=== PATIENT | female | born 2000 | race Caucasian/White ===

== ENCOUNTER 2020-10-15 13:40 | Observation (INO) ==
[2020-10-15 13:50] VITALS: BMI 19.5
--- NOTE | 2020-10-15 14:17 | ED.ABDFE ---
HPI Time Seen Time Seen by Provider: 10/15/20 14:16 PCP Primary Care Physician: DR ROSALES HPI Comment HPI Comment: Patient presents with the complaint of persistent abdominal pain and nausea/vomiting. Seen in ED a few days ago for similar complaint. Patient had hypokalemia that was corrected during that visit. Had workup which included labs, CT abd/pelvis and RUQ US. Scheduled to have cholestectomy on 10/[address] Ortiz. Complaint Chief Complaint:: PT C/O PROGRESSIVELY WORSENING PAIN INTO RUQ ASSOCIATED WITH NAUSEA AND VOMITING. Self Treatment fo Chief Complaint: PT WAS SCHEDULED FOR CHOLECYSTECTOMY ON 10/25 COVID-19 Coronavirus risk:travel/contact w/high risk person: No Has patient experienced Coronavirus symptoms: No Source History Provided: Patient Mode of arrival Mode of Arrival: Ambulatory Timing Onset of Chief Complaint: 10/15/20 PMH PMH Past Medical History: Yes Past Medical History: Anxiety Past Surgical History: Yes Surgical History: Ortho Surgery Family History History of Family Medical Conditions: No Family Medical History: Diabetes Mellitus, Cancer, Coronary Artery Disease and Hypertension Social History Does patient currently use any type of tobacco product: No Have you used tobacco products in the last 12 months: No Type of Tobacco Use: None Does any household member use tobacco: No Alcohol Use: None Do you use any recreational Drugs:: Yes Lives With: Spouse Lives Where: Home Travel Risk Coronavirus risk:travel/contact w/high risk person: No Has patient experienced Coronavirus symptoms: No Infectious screening In the last 2 months have you had wt loss of >10#?: NO Have you had fever, night sweats or hemotysis?: No Have you traveled outside the country in the last 6 months?: No Isolation: Standard ROS Review of Systems Constitutional: See HPI PE Vital Signs Vitals: Temperature 98.1 F Pulse Rate 83 Respiratory Rate 20 Blood Pressure 130/74 O2 Sat by Pulse Oximetry 98 General Limitations: No Limitations General Appearance: Alert and In No Apparent Distress Head Head Exam: Normal Inspection, Atraumatic and Normocephalic Eyes Eye exam: Normal Appearance and EOMI ENT ENT Exam: Normal Exam and Normal Oropharynx Neck Neck Exam: Normal Inspection and Trachea Midline Chest Chest Inspection: Normal Inspection and Symmetric Chest Wall Rise Respiratory Respiratory Exam: Normal Lung Sounds Bilat Respiratory Exam: Bilateral: Clear to Auscultation Cardiovascular Cardiovascular Exam: Regular Rate, Normal Rhythm and Normal Heart Sounds Abdominal Exam Abdominal Exam: Normal Inspection and Tenderness Abdominal Tenderness: Diffuse Neurologic Neurological Exam: Alert and Oriented X3 Psychiatric Psychiatric Exam: Normal Affect and Normal Mood Skin Skin Exam: Warm and Dry COURSE Consultation Consultation Comments: Spoke with Dr. Ortiz who accepts patient for admission Opioid Opioid Risk Tool Age (Nikhil box if 16-45): Yes History of Preadolescent Sexual Abuse: No Total: 1 Total Score Risk Category: Low Risk Copyright: Logan MCMILLAN predicting aberrant behaviors Diagnosis Discharge Problem: Intractable nausea and vomiting Abdominal pain Qualifiers: Abdominal location: right upper quadrant Qualified Code(s): R10.11 - Right upper quadrant pain
[2020-10-15] MEDS ORDERED: MORPHINE SULFATE INJ 4 MG IVP PRN ×2 (14:18→17:06)
[2020-10-15] MEDS ORDERED: ZOFRAN INJ 4 MG VIAL IVP PRN (14:18)
[2020-10-15] MEDS ORDERED: MORPHINE SULFATE INJ 4 MG ONE ×2 (14:29→16:27)
[2020-10-15] MEDS ORDERED: NS 1000 ML 1,000 ML ONE (14:29)
[2020-10-15] MEDS ORDERED: ZOFRAN INJ 4 MG VIAL ONE (14:29)
[2020-10-15 14:33] LABS: BASOPHILS % (AUTO) 0.2 % (0.2-1.0); EOSINOPHILS # (AUTO) 0.1 x10^3/uL (0.0-0.2); HEMATOCRIT 43.9 % (36.0-47.0); HEMOGLOBIN 15.1 g/dL (12.0-16.0); LYMPHOCYTES # (AUTO) 1.4 X10^3/uL (1.3-2.9); LYMPHOCYTES % (AUTO) 15.8 % (21.0-51.0); MEAN CORPUSCULAR HEMOGLOBIN 32.2 pg (27.0-34.0); MEAN CORPUSCULAR HGB CONC 34.4 g/dL (33.0-35.0); MEAN CORPUSCULAR VOLUME 93.4 fL (80.0-100.0); MEAN PLATELET VOLUME 8.1 fL (7.4-11.0); MONOCYTES # (AUTO) 0.7 x10^3/uL (0.3-0.8); MONOCYTES % (AUTO) 8.4 % (0.0-13.0); NEUTROPHILS # (AUTO) 6.5 x10^3/uL (2.2-4.8); NEUTROPHILS % (AUTO) 74.6 % (42.0-75.0); PLATELET COUNT 307 X10^3/uL (150.0-450.0); RED BLOOD COUNT 4.69 X10^6/uL (3.5-5.4); RED CELL DISTRIBUTION WIDTH 12.8 % (11.6-16.5); WHITE BLOOD COUNT 8.7 X10^3/uL (3.6-10.0)
[2020-10-15 14:43] LABS: ALANINE AMINOTRANSFERASE 25 Units/L (12-78); ALBUMIN 4.7 g/dL (3.4-5.0); ALKALINE PHOSPHATASE 62 Units/L (46-116); ASPARTATE AMINO TRANSFERASE 16 Units/L (15-37); BLOOD UREA NITROGEN 5 mg/dL (7-18); CALCIUM 10.1 mg/dL (8.5-10.1); CARBON DIOXIDE 27.3 mmol/L (21-32); CHLORIDE 105 mmol/L (98-107); CREATININE 0.81 mg/dL (0.55-1.02); SODIUM 144 mmol/L (136-145); TOTAL PROTEIN 8.3 g/dL (6.4-8.2); eGFR NON BLACK RACES > 60 (>60)
[2020-10-15] MEDS ORDERED: NS 1000 ML 1,000 ML IV SCH (15:00)
[2020-10-15] MEDS ORDERED: KLOR-CON PO PRN (15:21)
[2020-10-15] MEDS ORDERED: POTASSIUM CHL 60 MEQ/NS 0.45% 500 ML IV PRN (15:21)
[2020-10-15] MEDS ORDERED: MAGNESIUM SULFATE 1 GRAM/100 mL PREMIX 1 GM/100 ML BAG IV PRN (15:21)
[2020-10-15] MEDS ORDERED: POTASSIUM CHLORIDE LIQ 20 MEQ UDC PO PRN (15:21)
[2020-10-15] MEDS ORDERED: MICRO K EXTEN CAP 10 MEQ PO PRN (15:21)
[2020-10-15] MEDS ORDERED: POTASSIUM CHL 40 MEQ/NS 0.45% 500 ML IV PRN (15:21)
[2020-10-15] MEDS ORDERED: PROTONIX INJ 40 MG VIAL IVP SCH (16:00)
[2020-10-15] MEDS ORDERED: D5 1/2 NS 1000 ML 1,000 ML IV ONE (16:23)
[2020-10-15] MEDS: D5 1/2 NS 1000 ML 1,000 ML IV SCH (17:00)
[2020-10-15] MEDS: K-DUR TAB 20 MEQ PO PRN (17:39)
[2020-10-15] MEDS: K-RIDER 10 MEQ/NS 100 ML 10 MEQ/100 ML BAG IV PRN ×3 (18:04→20:19)
[2020-10-15] MEDS: ATIVAN INJ 2 MG VIAL IVP SCH ×2 (18:05→23:00)
[2020-10-15] MEDS: MVI INJ (ADULT) IV SCH (18:05)
[2020-10-15 22:00] LABS: BILIRUBIN,URINE NEGATIVE (NEGATIVE); BLOOD/HEMOGLOBIN,URINE NEGATIVE (NEGATIVE); GLUCOSE, URINE NEGATIVE (NEGATIVE); KETONES,URINE 1+ (NEGATIVE); LEUKOCYTE ESTERASE ,URINE NEGATIVE (NEGATIVE); NITRITES,URINE NEGATIVE (NEGATIVE); PROTEIN,URINE NEGATIVE (NEGATIVE); UROBILINOGEN,URINE NORMAL (NORMAL)
[2020-10-15 22:07] LABS: APPEARANCE,URINE CLEAR (CLEAR); COLOR,URINE STRAW (YELLOW)
[2020-10-16] MEDS: D5 1/2 NS 1000 ML 1,000 ML IV SCH ×4 (01:39→17:08)
[2020-10-16] MEDS: ATIVAN INJ 2 MG VIAL IVP SCH ×4 (05:48→22:57)
[2020-10-16 06:20] LABS: BASOPHILS % (AUTO) 0.3 % (0.2-1.0); EOSINOPHILS # (AUTO) 0.1 x10^3/uL (0.0-0.2); EOSINOPHILS % (AUTO) 1.4 % (0.9-2.9); HEMATOCRIT 35.5 % (36.0-47.0); HEMOGLOBIN 12.3 g/dL (12.0-16.0); LYMPHOCYTES % (AUTO) 34.1 % (21.0-51.0); MEAN CORPUSCULAR HEMOGLOBIN 32.5 pg (27.0-34.0); MEAN CORPUSCULAR HGB CONC 34.7 g/dL (33.0-35.0); MEAN CORPUSCULAR VOLUME 93.5 fL (80.0-100.0); MEAN PLATELET VOLUME 8.4 fL (7.4-11.0); MONOCYTES # (AUTO) 0.8 x10^3/uL (0.3-0.8); MONOCYTES % (AUTO) 12.7 % (0.0-13.0); NEUTROPHILS # (AUTO) 3.1 x10^3/uL (2.2-4.8); NEUTROPHILS % (AUTO) 51.5 % (42.0-75.0); PLATELET COUNT 231 X10^3/uL (150.0-450.0); RED CELL DISTRIBUTION WIDTH 12.8 % (11.6-16.5)
[2020-10-16 06:24] LABS: ALANINE AMINOTRANSFERASE 21 Units/L (12-78); ALBUMIN 3.1 g/dL (3.4-5.0); ALKALINE PHOSPHATASE 42 Units/L (46-116); ASPARTATE AMINO TRANSFERASE 12 Units/L (15-37); BLOOD UREA NITROGEN 3 mg/dL (7-18); CALCIUM 8.6 mg/dL (8.5-10.1); CHLORIDE 108 mmol/L (98-107); COR CA(FOR HYPOALB) 9.3 mg/dL (8.5-10.1); CREATININE 0.57 mg/dL (0.55-1.02); MAGNESIUM 1.9 mg/dL (1.7-2.9); SODIUM 143 mmol/L (136-145); TOTAL PROTEIN 5.8 g/dL (6.4-8.2); eGFR NON BLACK RACES > 60 (>60)
--- NOTE | 2020-10-16 08:14 | DR.H&P ---
H&P - History & Physical for Day of: H&P Date: 10/15/20 - Chief Complaint Chief Complaint: ABDOMINAL PAIN, NAUSEA, VOMITING - History of Present Illness History of Present Illness: IS A 20 YEAR OLD WHITE FEMALE WHO PRESENTED TO THE ER WITH COMPLAINTS OF PERSISTENT NAUSEA, VOMITING, AND ABDOMINAL PAIN. SYMPTOMS STARTED ABOUT A WEEK AGO. SHE REPORTS THAT SHE HAS HAD EPISODES SIMILAR TO THIS IN THE PAST. SHE RECENTLY HAD AN ENDOSCOPY, BUT BIOPSIES ARE PENDING. SHE HAS ALSO HAD HIDA SCANS IN THE PAST, BUT DOES NOT REMEMBER HER EJECTION FRACTION. ABDOMINAL PAIN IS DESCRIBED STABBING AND WAS RATED A 7/10 ON ARRIVAL. IT IS LOCATED IN THE RUQ. SHE REPORTS THAT SYMPTOMS ARE WORSE AFTER EATING. SHE WAS IN THE ER FOR THE SAME SYMPTOMS ON 10/12/20 AND HAD AN ABDOMEN/PELVIS CT WITHOUT CONTRAST. IT REVEALED: Hyperdense material in the gallbladder may represent sludge, cholelithiasis, or most likely vicarious excretion of contrast. No surrounding inflammation. Please see right upper quadrant sonogram for further evaluation. A GALLBLADDER ULTRASOUND WAS THEN OBTAINED, WHICH REVEALED: 4.4 cm echogenic lesion in the left hepatic lobe is probably a benign hemangioma. Confirmation with dynamic contrast enhanced MRI of the liver is recommended. Sludge and a tiny polyp are seen in the gallbladder. HER POTASSIUM WAS LOW AT THAT TIME. IT WAS REPLEATED AND SHE WAS DISCHARGED HOME TO FOLLOW UP WITH . SHE IS SCHEDULED FOR OUTPATIENT CHOLECYSTECTOMY ON 10/25/2020. ON ARRIVAL TO THE HOSPITAL TODAY, HER VITALS WERE 98.1-83-20-98%-130/74. LABS WERE OBTAINED. ABNORMAL LAB VALUES INCLUDE THE FOLLOWING: POTASSIUM 2.9, BUN 5, TOTAL PROTEIN 8.3. URINALYSIS WAS UNREMARKABLE. IN THE ER, SHE WAS GIVEN MORPHINE 4MG IV X 1, AND ZOFRAN 4MG IV X 1 DOSE. SHE REPORTED ONLY SLIGHT IMPROVEMENT IN SYMPTOMS. SHE WAS ADMITTED TO THE HOSPITAL FOR FURTHER EVAULATION AND TREATMENT OF INTRACTABLE NAUSEA AND VOMITING, ABDOMINAL PAIN, AND DEHYDRATION. , GENERAL SURGEON WILL SEE PATIENT TODAY. SHE WAS STARTED ON D51/2 NS AT 125ML/HR, LORAZEPAM 1MG IV Q8H CORA, MORPHINE 4MG IV Q4H PRN PAIN, ZOFRAN 4MG IV Q4H PRN, PEPCID 20MG IV BID, PROTONIX 40MG IV BID, GI COCKTAIL 15ML PO QID, AND THE POTASSIUM AND MAGNESIUM PROTOCOLS. OTHERWISE, WE PLAN TO FOLLOW UP WITH AM LABS AND CONTINUE TO MONITOR. TIME SPENT ON CLINICAL ASSESSMENT, REVIEWING LABS AND IMAGING, DECISION MAKING, AND DOCUMENTATION GREATER THAN 75 MINUTES. - Past Medical History Past Medical History: Anxiety - Past Surgical History Surgical History: Ortho Surgery - Family History Family Medical History: CA, Hypertension - Social History Does patient currently use any type of tobacco product: No Have you used tobacco products in the last 12 months: No Type of Tobacco Use: None Does any household member use tobacco: Yes Alcohol Use: None Drug Use: Marijuana - Medications Home Medications: amoxicillin Allergy (Verified 10/12/20 10:31) - Review of Systems Constitutional: See HPI, Weakness Eyes: No Symptoms Reported ENT: No Symptoms Reported Respiratory: No Symptoms Reported Cardiovascular: No Symptoms Reported Gastrointestinal: See HPI, Nausea, Vomiting, Abdominal Pain. denies: Diarrhea, Constipation, Melena, Hematochezia Genitourinary: No Symptoms Reported Musculoskeletal: No Symptoms Reported Skin: No Symptoms Reported Neurological: Weakness - Physical Exam Vital Signs: Temperature 99.0 F Pulse Rate [Bilateral Radial] 63 Pulse Rate 83 Respiratory Rate 20 Blood Pressure [Left Arm] 101/58 Blood Pressure 130/74 O2 Sat by Pulse Oximetry 99 Oriented: Normal Eyes: Normal Ear: Normal Nose: Normal Throat: Normal Respiratory: Clear Throughout Cardiovascular: Normal : Normal Auscultation: Bowel Sounds: Normal Palpation: Normal Tenderness: RUQ, Moderate. negative: Rebound, Guarding, Rigidity Skin: Normal Musculoskeletal: Normal Psychiatric: Normal Mood Description: Calm Affect: Normal Speech Pattern: Clear - Assessment/Plan (1) Dehydration Status: Acute Plan: ADMIT, D51/2 NS AT 125ML/HR, LORAZEPAM 1MG IV Q8H CORA, MORPHINE 4MG IV Q4H PRN PAIN, ZOFRAN 4MG IV Q4H PRN, PEPCID 20MG IV BID, PROTONIX 40MG IV BID, GI COCKTAIL 15ML PO QID, AND THE POTASSIUM AND MAGNESIUM PROTOCOLS. (2) Intractable nausea and vomiting Status: Acute (3) Abdominal pain Qualifiers: Abdominal location: right upper quadrant Qualified Code(s): R10.11 - Right upper quadrant pain Status: Acute (4) Acute hypokalemia Status: Acute - Allergies Allergies/Adverse Reactions: Allergies Allergy/AdvReac Type Severity Reaction Status Date / Time amoxicillin Allergy Verified 10/12/20 10:31
[2020-10-16] MEDS: K-RIDER 10 MEQ/NS 100 ML 10 MEQ/100 ML BAG IV PRN ×3 (09:12→12:55)
[2020-10-16] MEDS: PROTONIX INJ 40 MG VIAL IVP SCH ×2 (09:13→20:52)
[2020-10-16] MEDS ORDERED: ZOFRAN INJ 4 MG VIAL IVP PRN (09:16)
[2020-10-16] MEDS: MVI INJ (ADULT) IV SCH (10:24)
[2020-10-16] MEDS: PEPCID 20 MG IV PREMIX* 20 MG/50 ML BAG IV SCH ×2 (10:39→20:53)
[2020-10-16] MEDS: LEVSIN/MAALOX/LIDOC VISC PO SCH ×4 (10:40→20:53)
--- NOTE | 2020-10-16 13:00 | DR.PROGNOT ---
Hospital Progress Notes - Progress Note for Day of: Progress Note Date: 10/16/20 - Chief Complaint Chief Complaint: feeling much better today .. no nausea or vomiting . less abdominal pain . had very loose BM . K was 2.9 which was corrected to 3.3 . WWBC 6. tmp 99 - Past Medical Family Social History Past Med/Fam/Surg Hx: No changes since H&P Allergies: Allergies amoxicillin Allergy (Verified 10/12/20 10:31) - Review Of Systems ROS: No change since H&P - Vital Signs Vital Signs: Temperature 99.0 F Pulse Rate [Bilateral Radial] 63 Pulse Rate 83 Respiratory Rate 18 Blood Pressure [Left Arm] 101/58 Blood Pressure 130/74 O2 Sat by Pulse Oximetry 99 - Physical Exam Oriented: Normal Eyes: Normal Ear: Normal Nose: Normal Throat: Normal Cardiovascular: Normal : Normal GI:Auscultation: Normal GI:Palpation: Normal GI: Tenderness: RUQ (soft abdomen with moderate RUQ tnderness , no rebound , no rigidity.), Moderate. negative: Rebound, Guarding, Rigidity Skin: Normal Musculoskeletal: Normal Psychiatric: Normal Mood Description: Calm Affect: Normal Speech Pattern: Clear - Laboratory and Diagnostics Result Diagrams: 10/16/20 05:30 10/16/20 05:30 Labs: Laboratory WBC 6.0 X10^3/uL (3.6-10.0) 10/16/20 05:30 RBC 3.80 X10^6/uL (3.5-5.4) 10/16/20 05:30 Hgb 12.3 g/dL (12.0-16.0) D 10/16/20 05:30 Hct 35.5 % (36.0-47.0) L 10/16/20 05:30 MCV 93.5 fL (80.0-100.0) 10/16/20 05:30 MCH 32.5 pg (27.0-34.0) 10/16/20 05:30 MCHC 34.7 g/dL (33.0-35.0) 10/16/20 05:30 RDW 12.8 % (11.6-16.5) 10/16/20 05:30 Plt Count 231 X10^3/uL (150.0-450.0) 10/16/20 05:30 MPV 8.4 fL (7.4-11.0) 10/16/20 05:30 Neut % (Auto) 51.5 % (42.0-75.0) 10/16/20 05:30 Lymph % (Auto) 34.1 % (21.0-51.0) 10/16/20 05:30 [place] % (Auto) 12.7 % (0.0-13.0) 10/16/20 05:30 Eos % (Auto) 1.4 % (0.9-2.9) 10/16/20 05:30 Baso % (Auto) 0.3 % (0.2-1.0) 10/16/20 05:30 Neut # (Auto) 3.1 x10^3/uL (2.2-4.8) 10/16/20 05:30 Lymph # (Auto) 2.0 X10^3/uL (1.3-2.9) 10/16/20 05:30 [place] # (Auto) 0.8 x10^3/uL (0.3-0.8) 10/16/20 05:30 Eos # (Auto) 0.1 x10^3/uL (0.0-0.2) 10/16/20 05:30 Baso # (Auto) 0.0 X10^3/uL (0.0-0.1) 10/16/20 05:30 Absolute Nucleated RBC 0.1 /100WBC 10/16/20 05:30 Sodium 143 mmol/L (136-145) 10/16/20 05:30 Corrected Sodium TNP 10/16/20 05:30 Potassium 3.3 mmol/L (3.5-5.1) L 10/16/20 05:30 Chloride 108 mmol/L (98-107) H 10/16/20 05:30 Carbon Dioxide 27.0 mmol/L (21-32) 10/16/20 05:30 BUN 3 mg/dL (7-18) L 10/16/20 05:30 Creatinine 0.57 mg/dL (0.55-1.02) 10/16/20 05:30 Est GFR (MDRD) Af Amer > 60 (>60) 10/16/20 05:30 Est GFR (MDRD) Non-Af > 60 (>60) 10/16/20 05:30 Glucose 95 mg/dL (65-99) 10/16/20 05:30 POC Glucose (mg/dL) 88 mg/dL (65-99) 10/16/20 05:38 Calcium 8.6 mg/dL (8.5-10.1) 10/16/20 05:30 Corrected Calcium 9.3 mg/dL (8.5-10.1) 10/16/20 05:30 Magnesium 1.9 mg/dL (1.7-2.9) 10/16/20 05:30 Total Bilirubin 0.50 mg/dL (0.2-1.0) 10/16/20 05:30 AST 12 Units/L (15-37) L 10/16/20 05:30 ALT 21 Units/L (12-78) 10/16/20 05:30 Alkaline Phosphatase 42 Units/L (46-116) L 10/16/20 05:30 Total Protein 5.8 g/dL (6.4-8.2) L 10/16/20 05:30 Albumin 3.1 g/dL (3.4-5.0) L 10/16/20 05:30 Globulin 2.7 g/dL (2.5-4.5) 10/16/20 05:30 Albumin/Globulin Ratio 1.1 Ratio (1.1-2.1) 10/16/20 05:30 Specimen Type Clean catch urine 10/15/20 21:35 Urine Color Straw (YELLOW) 10/15/20 21:35 Urine Appearance Clear (CLEAR) 10/15/20 21:35 Urine pH 8.0 (5.0 - 8.0) 10/15/20 21:35 Ur Specific [place] 1.015 (1.000-1.030) 10/15/20 21:35 Urine Protein Negative (NEGATIVE) 10/15/20 21:35 Urine Glucose (UA) Negative (NEGATIVE) 10/15/20 21:35 Urine Ketones 1+ (NEGATIVE) 10/15/20 21:35 Urine Occult Blood Negative (NEGATIVE) 10/15/20 21:35 Urine Nitrite Negative (NEGATIVE) 10/15/20 21:35 Urine Bilirubin Negative (NEGATIVE) 10/15/20 21:35 Urine Urobilinogen Normal (NORMAL) 10/15/20 21:35 Ur Leukocyte Esterase Negative (NEGATIVE) 10/15/20 21:35 - Assessment and Plan 1: acute abdominal pain with severe vomiting . recurrent cholecystitis . possible cyclic vomiting syndrome . electrolyte imbalance and dehydration . on IVF , Vitamine supplements , Protonix, Ativan . lap wilbert if still symptomatic .. - Problem Patient Problems: Patient Problems Abdominal pain (Acute) R10.9 Acute hypokalemia (Acute) E87.6 Intractable nausea and vomiting (Acute) R11.2 Dehydration (Acute) E86.0
[2020-10-17] MEDS: D5 1/2 NS 1000 ML 1,000 ML IV SCH ×3 (01:13→16:44)
[2020-10-17 04:42] LABS: BASOPHILS % (AUTO) 0.3 % (0.2-1.0); EOSINOPHILS # (AUTO) 0.1 x10^3/uL (0.0-0.2); EOSINOPHILS % (AUTO) 1.8 % (0.9-2.9); HEMATOCRIT 36.4 % (36.0-47.0); HEMOGLOBIN 12.2 g/dL (12.0-16.0); LYMPHOCYTES # (AUTO) 1.8 X10^3/uL (1.3-2.9); LYMPHOCYTES % (AUTO) 33.3 % (21.0-51.0); MEAN CORPUSCULAR HEMOGLOBIN 31.9 pg (27.0-34.0); MEAN CORPUSCULAR HGB CONC 33.5 g/dL (33.0-35.0); MEAN PLATELET VOLUME 8.7 fL (7.4-11.0); MONOCYTES # (AUTO) 0.7 x10^3/uL (0.3-0.8); MONOCYTES % (AUTO) 12.9 % (0.0-13.0); NEUTROPHILS # (AUTO) 2.8 x10^3/uL (2.2-4.8); NEUTROPHILS % (AUTO) 51.7 % (42.0-75.0); PLATELET COUNT 241 X10^3/uL (150.0-450.0); RED BLOOD COUNT 3.83 X10^6/uL (3.5-5.4); RED CELL DISTRIBUTION WIDTH 13.1 % (11.6-16.5); WHITE BLOOD COUNT 5.4 X10^3/uL (3.6-10.0)
[2020-10-17 04:51] LABS: ALANINE AMINOTRANSFERASE 19 Units/L (12-78); ALBUMIN 3.1 g/dL (3.4-5.0); ALKALINE PHOSPHATASE 40 Units/L (46-116); ASPARTATE AMINO TRANSFERASE 10 Units/L (15-37); BLOOD UREA NITROGEN 2 mg/dL (7-18); CALCIUM 8.1 mg/dL (8.5-10.1); CARBON DIOXIDE 25.6 mmol/L (21-32); CHLORIDE 109 mmol/L (98-107); COR CA(FOR HYPOALB) 8.8 mg/dL (8.5-10.1); CREATININE 0.51 mg/dL (0.55-1.02); MAGNESIUM 2.1 mg/dL (1.7-2.9); SODIUM 144 mmol/L (136-145); TOTAL PROTEIN 5.6 g/dL (6.4-8.2); eGFR NON BLACK RACES > 60 (>60)
[2020-10-17] MEDS: ATIVAN INJ 2 MG VIAL IVP SCH ×3 (05:59→21:27)
[2020-10-17] MEDS: MVI INJ (ADULT) IV SCH (08:30)
[2020-10-17] MEDS: LEVSIN/MAALOX/LIDOC VISC PO SCH ×4 (08:45→20:34)
[2020-10-17] MEDS: PEPCID 20 MG IV PREMIX* 20 MG/50 ML BAG IV SCH ×2 (08:46→20:32)
[2020-10-17] MEDS: PROTONIX INJ 40 MG VIAL IVP SCH ×2 (08:46→20:33)
--- NOTE | 2020-10-17 12:42 | DR.PROGNOT ---
Hospital Progress Notes - Progress Note for Day of: Progress Note Date: 10/17/20 - Chief Complaint Chief Complaint: feeling much better today .. no nausea or vomiting . less abdominal pain . tolerated soft diet without voiting . K is norml today. WBC 6. tmp 99 - Past Medical Family Social History Past Med/Fam/Surg Hx: No changes since H&P Allergies: Allergies amoxicillin Allergy (Verified 10/12/20 10:31) - Review Of Systems ROS: No change since H&P - Vital Signs Vital Signs: Temperature 97.6 F Pulse Rate [Bilateral Radial] 82 Pulse Rate 83 Respiratory Rate 18 Blood Pressure [Left Arm] 102/56 Blood Pressure 130/74 O2 Sat by Pulse Oximetry 98 - Physical Exam Oriented: Normal Eyes: Normal Ear: Normal Nose: Normal Throat: Normal Cardiovascular: Normal : Normal GI:Auscultation: Normal GI:Palpation: Normal GI: Tenderness: RUQ (soft abdomen with moderate RUQ tnderness , no rebound , no rigidity.), Moderate. negative: Rebound, Guarding, Rigidity Skin: Normal Musculoskeletal: Normal Psychiatric: Normal Mood Description: Calm Affect: Normal Speech Pattern: Clear, Appropriate - Laboratory and Diagnostics Result Diagrams: 10/17/20 04:00 10/17/20 04:00 Labs: Laboratory WBC 5.4 X10^3/uL (3.6-10.0) 10/17/20 04:00 RBC 3.83 X10^6/uL (3.5-5.4) 10/17/20 04:00 Hgb 12.2 g/dL (12.0-16.0) 10/17/20 04:00 Hct 36.4 % (36.0-47.0) 10/17/20 04:00 MCV 95.0 fL (80.0-100.0) 10/17/20 04:00 MCH 31.9 pg (27.0-34.0) 10/17/20 04:00 MCHC 33.5 g/dL (33.0-35.0) 10/17/20 04:00 RDW 13.1 % (11.6-16.5) 10/17/20 04:00 Plt Count 241 X10^3/uL (150.0-450.0) 10/17/20 04:00 MPV 8.7 fL (7.4-11.0) 10/17/20 04:00 Neut % (Auto) 51.7 % (42.0-75.0) 10/17/20 04:00 Lymph % (Auto) 33.3 % (21.0-51.0) 10/17/20 04:00 [place] % (Auto) 12.9 % (0.0-13.0) 10/17/20 04:00 Eos % (Auto) 1.8 % (0.9-2.9) 10/17/20 04:00 Baso % (Auto) 0.3 % (0.2-1.0) 10/17/20 04:00 Neut # (Auto) 2.8 x10^3/uL (2.2-4.8) 10/17/20 04:00 Lymph # (Auto) 1.8 X10^3/uL (1.3-2.9) 10/17/20 04:00 [place] # (Auto) 0.7 x10^3/uL (0.3-0.8) 10/17/20 04:00 Eos # (Auto) 0.1 x10^3/uL (0.0-0.2) 10/17/20 04:00 Baso # (Auto) 0.0 X10^3/uL (0.0-0.1) 10/17/20 04:00 Absolute Nucleated RBC 0.0 /100WBC 10/17/20 04:00 Sodium 144 mmol/L (136-145) 10/17/20 04:00 Corrected Sodium TNP 10/17/20 04:00 Potassium 3.8 mmol/L (3.5-5.1) 10/17/20 04:00 Chloride 109 mmol/L (98-107) H 10/17/20 04:00 Carbon Dioxide 25.6 mmol/L (21-32) 10/17/20 04:00 BUN 2 mg/dL (7-18) L 10/17/20 04:00 Creatinine 0.51 mg/dL (0.55-1.02) L 10/17/20 04:00 Est GFR (MDRD) Af Amer > 60 (>60) 10/17/20 04:00 Est GFR (MDRD) Non-Af > 60 (>60) 10/17/20 04:00 Glucose 92 mg/dL (65-99) 10/17/20 04:00 POC Glucose (mg/dL) 80 mg/dL (65-99) 10/17/20 11:08 Hemoglobin A1c 4.6 % 10/17/20 04:35 Calcium 8.1 mg/dL (8.5-10.1) L 10/17/20 04:00 Corrected Calcium 8.8 mg/dL (8.5-10.1) 10/17/20 04:00 Magnesium 2.1 mg/dL (1.7-2.9) 10/17/20 04:00 Total Bilirubin 0.20 mg/dL (0.2-1.0) 10/17/20 04:00 AST 10 Units/L (15-37) L 10/17/20 04:00 ALT 19 Units/L (12-78) 10/17/20 04:00 Alkaline Phosphatase 40 Units/L (46-116) L 10/17/20 04:00 Total Protein 5.6 g/dL (6.4-8.2) L 10/17/20 04:00 Albumin 3.1 g/dL (3.4-5.0) L 10/17/20 04:00 Globulin 2.5 g/dL (2.5-4.5) 10/17/20 04:00 Albumin/Globulin Ratio 1.2 Ratio (1.1-2.1) 10/17/20 04:00 Specimen Type Clean catch urine 10/15/20 21:35 Urine Color Straw (YELLOW) 10/15/20 21:35 Urine Appearance Clear (CLEAR) 10/15/20 21:35 Urine pH 8.0 (5.0 - 8.0) 10/15/20 21:35 Ur Specific [place] 1.015 (1.000-1.030) 10/15/20 21:35 Urine Protein Negative (NEGATIVE) 10/15/20 21:35 Urine Glucose (UA) Negative (NEGATIVE) 10/15/20 21:35 Urine Ketones 1+ (NEGATIVE) 10/15/20 21:35 Urine Occult Blood Negative (NEGATIVE) 10/15/20 21:35 Urine Nitrite Negative (NEGATIVE) 10/15/20 21:35 Urine Bilirubin Negative (NEGATIVE) 10/15/20 21:35 Urine Urobilinogen Normal (NORMAL) 10/15/20 21:35 Ur Leukocyte Esterase Negative (NEGATIVE) 10/15/20 21:35 - Assessment and Plan 1: acute abdominal pain with severe vomiting .(subsided ). recurrent cholecystitis . possible cyclic vomiting syndrome . electrolyte imbalance and dehydration . on IVF , Vitamine supplements , Protonix, Ativan . no surgey for now .. possible discharge in AM - Problem Patient Problems: Patient Problems Abdominal pain (Acute) R10.9 Acute hypokalemia (Acute) E87.6 Intractable nausea and vomiting (Acute) R11.2 Dehydration (Acute) E86.0
[2020-10-17] MEDS: K-DUR TAB 20 MEQ PO PRN (21:27)
[2020-10-18] MEDS: D5 1/2 NS 1000 ML 1,000 ML IV SCH (01:39)
[2020-10-18 04:05] VITALS: BP 121/76
[2020-10-18 05:05] LABS: BASOPHILS % (AUTO) 0.3 % (0.2-1.0); EOSINOPHILS # (AUTO) 0.1 x10^3/uL (0.0-0.2); EOSINOPHILS % (AUTO) 1.6 % (0.9-2.9); HEMATOCRIT 36.9 % (36.0-47.0); HEMOGLOBIN 12.4 g/dL (12.0-16.0); LYMPHOCYTES # (AUTO) 1.8 X10^3/uL (1.3-2.9); LYMPHOCYTES % (AUTO) 27.5 % (21.0-51.0); MEAN CORPUSCULAR HEMOGLOBIN 32.1 pg (27.0-34.0); MEAN CORPUSCULAR HGB CONC 33.5 g/dL (33.0-35.0); MEAN CORPUSCULAR VOLUME 95.7 fL (80.0-100.0); MEAN PLATELET VOLUME 8.8 fL (7.4-11.0); MONOCYTES # (AUTO) 0.8 x10^3/uL (0.3-0.8); MONOCYTES % (AUTO) 12.6 % (0.0-13.0); NEUTROPHILS # (AUTO) 3.8 x10^3/uL (2.2-4.8); PLATELET COUNT 230 X10^3/uL (150.0-450.0); RED BLOOD COUNT 3.86 X10^6/uL (3.5-5.4); RED CELL DISTRIBUTION WIDTH 13.1 % (11.6-16.5); WHITE BLOOD COUNT 6.6 X10^3/uL (3.6-10.0)
[2020-10-18 05:15] LABS: ALANINE AMINOTRANSFERASE 20 Units/L (12-78); ALBUMIN 3.2 g/dL (3.4-5.0); ALKALINE PHOSPHATASE 43 Units/L (46-116); ASPARTATE AMINO TRANSFERASE 14 Units/L (15-37); BLOOD UREA NITROGEN 3 mg/dL (7-18); CALCIUM 8.7 mg/dL (8.5-10.1); CARBON DIOXIDE 26.5 mmol/L (21-32); CHLORIDE 107 mmol/L (98-107); COR CA(FOR HYPOALB) 9.3 mg/dL (8.5-10.1); CREATININE 0.65 mg/dL (0.55-1.02); SODIUM 143 mmol/L (136-145); eGFR NON BLACK RACES > 60 (>60)
[2020-10-18] MEDS: ATIVAN INJ 2 MG VIAL IVP SCH (05:37)
--- NOTE | 2020-10-18 08:29 | PCM.PROG ---
Progress Note - Progress Note for Day of Date of Exam: 10/17/20 - Subjective Subjective: WAS ADMITTED FOR TREATMENT OF DEHYDRATION, INTRACTABLE NAUSEA AND VOMITING, ABDOMINAL PAIN, ACUTE HYPOKALEMIA, CHOLECYSTIS, RULE OUT CYCLIC VOMITING SYNDROME. TODAY, SHE IS ALERT AND OREINTED, LYING IN BED ON MORNING ROUNDS. SHE CONTINUES WITH COMPLAINTS OF MILD ABDOMINAL TENDERNESS AND NAUSEA THIS MORNING. SHE DOES ADMIT TO SLIGHT IMPROVEMENT SINCE ADMISSION. ON EXAMINATION, HEART IS REGULAR IN RATE AND RHYTHM. BILATERAL LUNGS ARE CLEAR TO AUSCULTATION. ABDOMEN IS NOTED WITH EPIGASTRIC AND RIGHT SIDED ABDOMINAL TENDERNESS. NORMAL BOWEL SOUNDS NOTED IN ALL QUADRANTS. HER VITALS THIS MORNING ARE: 97.6-82-18-98%-102/56. LABS WERE OBTAINED. ABNORMAL LAB VALUES INCLUDE THE FOLLOWING: CHLORIDE 109, BUN 2, CREATININE 0.51, CALCIUM 8.1, AST 10, ALK PHOS 40, TOTAL PROTEIN 5.6, ALBUMIN 3.1. SHE IS CURRENTLY RECEIVING D51/2 NS AT 125ML/HR, LORAZEPAM 1MG IV Q8H CORA, MORPHINE 4MG IV Q4H PRN PAIN, ZOFRAN 4MG IV Q4H PRN, PEPCID 20MG IV BID, PROTONIX 40MG IV BID, GI COCKTAIL 15ML PO QID, AND THE POTASSIUM AND MAGNESIUM PROTOCOLS. WE WILL CONTINUE WITH CURRENT PLAN OF CARE TODAY. CONTINUES TO FOLLOW PATIENT. OTHERWISE, WE WILL FOLLOW UP WITH AM LABS AND CONTINUE TO MONITOR. TIME SPENT ON CLINICAL ASSESSMENT, REVIEWING LABS AND IMAGING, DECISION MAKING, AND DOCUMENTATION GREATER THAN 45 MINUTES. - Past Medical Family Social History Past Med/Fam/Surg Hx: No changes since H&P Allergies: Allergies amoxicillin Allergy (Verified 10/12/20 10:31) - Review of Systems ROS: No change since H&P - Vital Signs and I&O's Vital Signs: Temperature 98.4 F Pulse Rate [Bilateral Radial] 76 Pulse Rate 83 Respiratory Rate 16 Blood Pressure [Left Arm] 121/76 Blood Pressure 130/74 O2 Sat by Pulse Oximetry 100 Intake and Output: Intake & Output 10/15/20 10/16/20 10/17/20 10/18/20 11:59 11:59 11:59 11:59 Intake Total 2422 / 2422 3662 / 3662 3706 / 3706 Output Total / 4 / Balance 2419 / 2419 3662 / 3662 3702 / 3702 - Physical Exam Oriented: Normal Eyes: Normal Ear: Normal Nose: Normal Throat: Normal Respiratory: Normal, Generalized Cardiovascular: Normal : Normal Auscultation: Bowel Sounds: Normal Palpation: Normal Tenderness: RUQ (soft abdomen with moderate RUQ tnderness , no rebound , no rigidity.), Mild. negative: Rebound, Guarding, Rigidity Skin: Normal Musculoskeletal: Normal Psychiatric: Normal Mood Description: Calm Affect: Normal Speech Pattern: Clear, Appropriate - Laboratory and Diagnostics Result Diagrams: 10/18/20 04:15 10/18/20 04:15 Labs: Laboratory WBC 6.6 X10^3/uL (3.6-10.0) 10/18/20 04:15 RBC 3.86 X10^6/uL (3.5-5.4) 10/18/20 04:15 Hgb 12.4 g/dL (12.0-16.0) 10/18/20 04:15 Hct 36.9 % (36.0-47.0) 10/18/20 04:15 MCV 95.7 fL (80.0-100.0) 10/18/20 04:15 MCH 32.1 pg (27.0-34.0) 10/18/20 04:15 MCHC 33.5 g/dL (33.0-35.0) 10/18/20 04:15 RDW 13.1 % (11.6-16.5) 10/18/20 04:15 Plt Count 230 X10^3/uL (150.0-450.0) 10/18/20 04:15 MPV 8.8 fL (7.4-11.0) 10/18/20 04:15 Neut % (Auto) 58.0 % (42.0-75.0) 10/18/20 04:15 Lymph % (Auto) 27.5 % (21.0-51.0) 10/18/20 04:15 [place] % (Auto) 12.6 % (0.0-13.0) 10/18/20 04:15 Eos % (Auto) 1.6 % (0.9-2.9) 10/18/20 04:15 Baso % (Auto) 0.3 % (0.2-1.0) 10/18/20 04:15 Neut # (Auto) 3.8 x10^3/uL (2.2-4.8) 10/18/20 04:15 Lymph # (Auto) 1.8 X10^3/uL (1.3-2.9) 10/18/20 04:15 [place] # (Auto) 0.8 x10^3/uL (0.3-0.8) 10/18/20 04:15 Eos # (Auto) 0.1 x10^3/uL (0.0-0.2) 10/18/20 04:15 Baso # (Auto) 0.0 X10^3/uL (0.0-0.1) 10/18/20 04:15 Absolute Nucleated RBC 0.0 /100WBC 10/18/20 04:15 Sodium 143 mmol/L (136-145) 10/18/20 04:15 Corrected Sodium TNP 10/18/20 04:15 Potassium 4.1 mmol/L (3.5-5.1) 10/18/20 04:15 Chloride 107 mmol/L (98-107) 10/18/20 04:15 Carbon Dioxide 26.5 mmol/L (21-32) 10/18/20 04:15 BUN 3 mg/dL (7-18) L 10/18/20 04:15 Creatinine 0.65 mg/dL (0.55-1.02) 10/18/20 04:15 Est GFR (MDRD) Af Amer > 60 (>60) 10/18/20 04:15 Est GFR (MDRD) Non-Af > 60 (>60) 10/18/20 04:15 Glucose 89 mg/dL (65-99) 10/18/20 04:15 POC Glucose (mg/dL) 81 mg/dL (65-99) 10/18/20 05:22 Hemoglobin A1c 4.6 % 10/17/20 04:35 Calcium 8.7 mg/dL (8.5-10.1) 10/18/20 04:15 Corrected Calcium 9.3 mg/dL (8.5-10.1) 10/18/20 04:15 Magnesium 2.1 mg/dL (1.7-2.9) 10/17/20 04:00 Total Bilirubin 0.30 mg/dL (0.2-1.0) 10/18/20 04:15 AST 14 Units/L (15-37) L 10/18/20 04:15 ALT 20 Units/L (12-78) 10/18/20 04:15 Alkaline Phosphatase 43 Units/L (46-116) L 10/18/20 04:15 Total Protein 6.0 g/dL (6.4-8.2) L 10/18/20 04:15 Albumin 3.2 g/dL (3.4-5.0) L 10/18/20 04:15 Globulin 2.8 g/dL (2.5-4.5) 10/18/20 04:15 Albumin/Globulin Ratio 1.1 Ratio (1.1-2.1) 10/18/20 04:15 Specimen Type Clean catch urine 10/15/20 21:35 Urine Color Straw (YELLOW) 10/15/20 21:35 Urine Appearance Clear (CLEAR) 10/15/20 21:35 Urine pH 8.0 (5.0 - 8.0) 10/15/20 21:35 Ur Specific [place] 1.015 (1.000-1.030) 10/15/20 21:35 Urine Protein Negative (NEGATIVE) 10/15/20 21:35 Urine Glucose (UA) Negative (NEGATIVE) 10/15/20 21:35 Urine Ketones 1+ (NEGATIVE) 10/15/20 21:35 Urine Occult Blood Negative (NEGATIVE) 10/15/20 21:35 Urine Nitrite Negative (NEGATIVE) 10/15/20 21:35 Urine Bilirubin Negative (NEGATIVE) 10/15/20 21:35 Urine Urobilinogen Normal (NORMAL) 10/15/20 21:35 Ur Leukocyte Esterase Negative (NEGATIVE) 10/15/20 21:35 - Plan (1) Dehydration Status: Acute Plan: D51/2 NS AT 125ML/HR, LORAZEPAM 1MG IV Q8H CORA, MORPHINE 4MG IV Q4H PRN PAIN, ZOFRAN 4MG IV Q4H PRN, PEPCID 20MG IV BID, PROTONIX 40MG IV BID, GI COCKTAIL 15ML PO QID, AND THE POTASSIUM AND MAGNESIUM PROTOCOLS. (2) Intractable nausea and vomiting Status: Acute (3) Abdominal pain Status: Acute Qualifiers: Abdominal location: right upper quadrant Qualified Code(s): R10.11 - Right upper quadrant pain (4) Acute hypokalemia Status: Acute
--- NOTE | 2020-10-18 08:45 | DR.CONSULT ---
Consult - Consultation for Day of: Date: 10/15/20 - Chief Complaint Chief Complaint: ABDOMINAL PAIN, NAUSEA, VOMITING - History of Present Illness History of Present Illness: IS A 20 YEAR OLD WHITE FEMALE WHO PRESENTED TO THE ER WITH COMPLAINTS OF PERSISTENT NAUSEA, VOMITING, AND ABDOMINAL PAIN. SYMPTOMS STARTED ABOUT A WEEK AGO. SHE REPORTS THAT SHE HAS HAD EPISODES SIMILAR TO THIS IN THE PAST. SHE RECENTLY HAD AN ENDOSCOPY, BUT BIOPSIES ARE PENDING. SHE HAS ALSO HAD HIDA SCANS IN THE PAST, BUT DOES NOT REMEMBER HER EJECTION FRACTION. ABDOMINAL PAIN IS DESCRIBED STABBING AND WAS RATED A 7/10 ON ARRIVAL. IT IS LOCATED IN THE RUQ. SHE REPORTS THAT SYMPTOMS ARE WORSE AFTER EATING. SHE WAS IN THE ER FOR THE SAME SYMPTOMS ON 10/12/20 AND HAD AN ABDOMEN/PELVIS CT WITHOUT CONTRAST. IT REVEALED: Hyperdense material in the gallbladder may represent sludge, cholelithiasis, or most likely vicarious excretion of contrast. No surrounding inflammation. Please see right upper quadrant sonogram for further evaluation. A GALLBLADDER ULTRASOUND WAS THEN OBTAINED, WHICH REVEALED: 4.4 cm echogenic lesion in the left hepatic lobe is probably a benign hemangioma. Confirmation with dynamic contrast enhanced MRI of the liver is recommended. Sludge and a tiny polyp are seen in the gallbladder. HER POTASSIUM WAS LOW AT THAT TIME. IT WAS REPLEATED AND SHE WAS DISCHARGED HOME TO FOLLOW UP WITH . SHE IS SCHEDULED FOR OUTPATIENT CHOLECYSTECTOMY ON 10/25/2020. ON ARRIVAL TO THE HOSPITAL TODAY, HER VITALS WERE 98.1-83-20-98%-130/74. LABS WERE OBTAINED. ABNORMAL LAB VALUES INCLUDE THE FOLLOWING: POTASSIUM 2.9, BUN 5, TOTAL PROTEIN 8.3. URINALYSIS WAS UNREMARKABLE. IN THE ER, SHE WAS GIVEN MORPHINE 4MG IV X 1, AND ZOFRAN 4MG IV X 1 DOSE. SHE REPORTED ONLY SLIGHT IMPROVEMENT IN SYMPTOMS. SHE WAS ADMITTED TO THE HOSPITAL FOR FURTHER EVAULATION AND TREATMENT OF INTRACTABLE NAUSEA AND VOMITING, ABDOMINAL PAIN, AND DEHYDRATION. , GENERAL SURGEON WILL SEE PATIENT TODAY. SHE WAS STARTED ON D51/2 NS AT 125ML/HR, LORAZEPAM 1MG IV Q8H CORA, MORPHINE 4MG IV Q4H PRN PAIN, ZOFRAN 4MG IV Q4H PRN, PEPCID 20MG IV BID, PROTONIX 40MG IV BID, GI COCKTAIL 15ML PO QID, AND THE POTASSIUM AND MAGNESIUM PROTOCOLS. OTHERWISE, WE PLAN TO FOLLOW UP WITH AM LABS AND CONTINUE TO MONITOR. TIME SPENT ON CLINICAL ASSESSMENT, REVIEWING LABS AND IMAGING, DECISION MAKING, AND DOCUMENTATION GREATER THAN 75 MINUTES. - Past Medical History Past Medical History: Anxiety - Past Surgical History Surgical History: Ortho Surgery - Family History Family Medical History: ME, Hypertension - Social History Does patient currently use any type of tobacco product: No Have you used tobacco products in the last 12 months: No Type of Tobacco Use: None Does any household member use tobacco: Yes Alcohol Use: None Drug Use: Marijuana - Medications Home Medications: amoxicillin Allergy (Verified 10/12/20 10:31) New Prescriptions lorazepam [Ativan] 1 mg PO BID #60 tab MDD 2 10/17/20 [Rx] pantoprazole [Protonix] 40 mg PO BID #60 tab 10/17/20 [Rx] - Review of Systems Constitutional: See HPI, Weakness Eyes: No Symptoms Reported ENT: No Symptoms Reported Respiratory: No Symptoms Reported Cardiovascular: No Symptoms Reported Gastrointestinal: See HPI, Nausea, Vomiting, Abdominal Pain. denies: Diarrhea, Constipation, Melena, Hematochezia Genitourinary: No Symptoms Reported Musculoskeletal: No Symptoms Reported Skin: No Symptoms Reported Neurological: Weakness - Physical Exam Vital Signs: Temperature 98.4 F Pulse Rate [Bilateral Radial] 76 Pulse Rate 83 Respiratory Rate 16 Blood Pressure [Left Arm] 121/76 Blood Pressure 130/74 O2 Sat by Pulse Oximetry 100 Oriented: Normal Eyes: Normal Ear: Normal Nose: Normal Throat: Normal Respiratory: Clear Throughout Cardiovascular: Normal : Normal Auscultation: Bowel Sounds: Normal Palpation: Normal Tenderness: RUQ, Epigastric, Moderate. negative: Rebound, Guarding, Rigidity Skin: Normal Musculoskeletal: Normal Psychiatric: Normal Mood Description: Calm Affect: Normal Speech Pattern: Clear - Plan Plan: D51/2 NS AT 125ML/HR, LORAZEPAM 1MG IV Q8H CORA, MORPHINE 4MG IV Q4H PRN PAIN, ZOFRAN 4MG IV Q4H PRN, PEPCID 20MG IV BID, PROTONIX 40MG IV BID, GI COCKTAIL 15ML PO QID, AND THE POTASSIUM AND MAGNESIUM PROTOCOLS, GENERAL SURGERY IS FOLLOWING, CONTINUE TO MONITOR. - Allergies Allergies/Adverse Reactions: Allergies Allergy/AdvReac Type Severity Reaction Status Date / Time amoxicillin Allergy Verified 10/12/20 10:31
== END 2020-10-18 08:15 | disposition home or self-care (01) ==
LOC: MED/SURG 13:44 → ER 13:44 → MED/SURG 14:53
PROVIDERS: ADMIT Surgery; ATTEND Surgery
DX: R10.11 Right upper quadrant pain; E86.0 Dehydration; K81.1 Chronic cholecystitis; E87.6 Hypokalemia; R11.2 Nausea with vomiting, unspecified